=== PATIENT | male | born 1995 | race African-American/Black ===

== ENCOUNTER 2017-08-07 10:59 | Day surgery (SDC) | payer OTHER ==
[~2017-08-07] VITALS: Ht 175.3 cm; Wt 68.0 kg
[2017-08-07] VITALS (13 sets, daily range): BP systolic 107–140; BP diastolic 52–88
--- NOTE | 2017-08-07 07:11 | Operative Note - PDOC ---
Operative Note Operative Note Pre-op Diagnosis: left knee acl tear Procedure: see op report Post-op Diagnosis: same as pre-op plus Operative Findings: consistent w/pre-op dx studies Anesthesia: MAC Specimen: none Complications: none Condition: stable Estimated Blood Loss: none Implant(s) used?: Yes RIC ROBERTS Aug 07, 2017 07:11
--- NOTE | 2017-08-07 07:11 | Pre-Procedure Note/Attestation ---
Pre-Procedure Note/Attestation Complete Prior to Procedure Planned Procedure: left Procedure Narrative: knee arthroscopic acl reconstruction Indications for Procedure Pre-Operative Diagnosis: left knee acl tear Attestation I attest that I discussed the nature of the procedure; its benefits; risks and complications; and alternatives (and the risks and benefits of such alternatives ), prior to the procedure, with the patient (or the patient's legal passenger relations representative). I attest that, if there was a reasonable possibility of needing a blood transfusion, the patient (or the patient's legal passenger relations representative) was given the [facility] standardized written summary, pursuant to the [place] Blood Safety Act ([place] Health and Safety Code # 1645, as amended). I attest that I re-evaluated the patient just prior to the surgery and that there has been no change in the patient's H&P, except as documented below: RIC ROBERTS Aug 07, 2017 07:11
[~2017-08-07 10:59] MED LIST: NKM; ceFAZolin 1gm/50ml Premix 50 ML IV ONE; celeBREX 200mg Cap **SURGERY PATIENTS ONLY ORAL ONE; oxyCONTIN 20mg tab ORAL ONE
[2017-08-07] MEDS ORDERED: Dexamethasone 4mg/ml vial ONE (13:00)
[2017-08-07] MEDS ORDERED: Propofol 200mg/20ml IV ONE (13:00)
[2017-08-07] MEDS ORDERED: Ketamine 500mg Inj ONE (13:00)
[2017-08-07] MEDS ORDERED: fentaNYL 100 mcg/2 mL IV ONE (13:00)
[2017-08-07] MEDS ORDERED: LR 1000ml ONE (13:00)
[2017-08-07] MEDS ORDERED: Lidocaine 1% MPF 10mg/ml 5ml ONE (13:00)
[2017-08-07] MEDS ORDERED: Alfentanil 2ml Inj ONE (13:00)
[2017-08-07] MEDS ORDERED: Ropivacaine 5mg/ml Vial 30ml INJ ONE (13:12)
[2017-08-07] MEDS ORDERED: Morphine Sulfate PF 10 ML ONE (13:16)
[2017-08-07] MEDS ORDERED: Duramorph PF 10mg/10ml amp IV ONE (13:17)
[2017-08-07] MEDS ORDERED: EPINEPHrine 1mg/1ml Amp ONE (13:17)
[2017-08-07] MEDS ORDERED: Kenalog-40 1ml Vial ONE (13:17)
[2017-08-07] MEDS ORDERED: Ketorolac 30mg Inj ONE (13:17)
[2017-08-07] MEDS ORDERED: Bupivacaine 0.25% Inj 30ml INJ ONE (13:17)
[2017-08-07] MEDS ORDERED: Bupivacaine w/Epi 0.75% 30ml Vial INJ ONE (13:17)
[2017-08-07] MEDS ORDERED: Lidocaine 1% 10mg/ml/EPI 0.01mg/ml 50ml INJ ONE (13:18)
[2017-08-07] MEDS ORDERED: NeoSporin Gu Irrig 1ml Amp IRRIG ONE (13:44)
[2017-08-07] MEDS ORDERED: Bacitracin 50000 Units Vial ONE (13:44)
[2017-08-07] MEDS ORDERED: LR 1000ml 1,000 ML IVLG SCH (13:54)
--- NOTE | 2017-08-07 13:54 | Anethesia Preoperative Eval ---
Anesthesia Pre-op PMH/ROS General Date of Evaluation: Aug 07, 2017 Time of Evaluation: 13:18 Anesthesiologist: Johana ASA Score: ASA 1 Mallampati Score Class I : Soft palate, uvula, fauces, pillars visible Class II: Soft palate, uvula, fauces visible Class III: Soft palate, base of uvula visible Class IV: Only hard plate visible Mallampati Classification: Class I Surgeon: Viveros Diagnosis: L Knee Pain Surgical Procedure: L Knee ACL Repair Anesthesia History: none Family History: no anesthesia problems Allergies: Coded Allergies: No Known Allergies (Unverified , 08/05/17) Medications: see eMAR Anesthesia Pre-op Phys. Exam Physician Exam Last Vital Signs Date Time Temp Pulse Resp B/P (MAP) Pulse Ox O2 Delivery O2 Flow Rate FiO2 08/07/17 12:32 98.7 82 20 122/74 97 Room Air Constitutional: NAD Neurologic: CN 2-12 intact Cardiovascular: RRR Respiratory: CTA Gastrointestinal: S/NT/ND Airway Exam Mallampati Score: Class I MO: full ROM: full Teeth: intact Anesthesia Pre-op A/P Risk Assessment & Plan Assessment: ASA 1 Plan: GA, BIS, L Adductor, Femoral Block Status Change Before Surgery: No Pre-Antibiotics Dru Grams Ancef IV Given Within 1 Hr of Incision: Yes Time Given: 13:31 Manuel Vaughn MD Aug 07, 2017 13:54
[2017-08-07] MEDS ORDERED: LORazepam Inj 2mg/ml 1ml IV PRN (14:00)
[2017-08-07] MEDS ORDERED: Norco 5mg/325mg tab ORAL PRN ×2 (14:00→20:01)
[2017-08-07] MEDS ORDERED: Midazolam 2mg/2ml Inj IVP PRN (14:00)
[2017-08-07] MEDS ORDERED: Metoclopramide 10mg/2ml Inj IVP PRN (14:00)
[2017-08-07] MEDS ORDERED: Ketorolac 60mg Inj IV PRN (14:00)
[2017-08-07] MEDS ORDERED: Norco 7.5mg/325mg tab ORAL PRN (14:00)
[2017-08-07] MEDS ORDERED: fentaNYL 100 mcg/2 mL IV PRN (14:00)
[2017-08-07] MEDS ORDERED: oxyCODONE HCL/Acetaminophen 5/325mg ORAL PRN (14:00)
[2017-08-07] MEDS ORDERED: Atropine Inj 1mg/10ml Syr IV PRN ×2 (14:00→18:00)
[2017-08-07] MEDS ORDERED: DiphenhydrAMINE 50mg/ml Inj IVP PRN (14:00)
[2017-08-07] MEDS ORDERED: Ketorolac 30mg Inj IV PRN (14:00)
[2017-08-07] MEDS ORDERED: Hydromorphone 0.5mg/0.5ml inj IVP PRN (14:00)
--- NOTE | 2017-08-07 14:02 | Immediate Post-Op Evaluation ---
Immediate Post-Op Evalulation Immediate Post-Op Evalulation Procedure: L Knee ACL Repair Date of Evaluation: Aug 07, 2017 Time of Evaluation: 15:32 IV Fluids: 800 LR Blood Products: 0 Estimated Blood Loss: 15 Urinary Output: 0 Blood Pressure Systolic: 112 Blood Pressure Diastolic: 56 Pulse Rate: 84 Respiratory Rate: 16 O2 Sat by Pulse Oximetry: 100 Temperature (Fahrenheit): 97.6 Pain Score (1-10): 2 Nausea: No Vomiting: No Complications 0 Patient Status: awake, reacts, patent, none Hydration Status: adequate Dru Grams Ancef IV Given Within 1 Hr of Incision: Yes Time Given: 13:31 Manuel Vaughn MD Aug 07, 2017 14:02
--- NOTE | 2017-08-07 14:02 | 48 Hour Post Anesthesia Eval ---
Post Anesthesia Evaluation Procedure: L Knee ACL Repair Date of Evaluation: Aug 07, 2017 Time of Evaluation: 17:43 Blood Pressure Systolic: 114 0: 62 Pulse Rate: 72 Respiratory Rate: 18 Temperature (Fahrenheit): 98.4 O2 Sat by Pulse Oximetry: 100 Airway: patent Nausea: No Vomiting: No Pain Intensity: 3 Hydration Status: adequate Cardiopulmonary Status: Stable Mental Status/LOC: patient returned to baseline Follow-up Care/Observations: 0 Post-Anesthesia Complications: 0 Follow-up care needed: ready to discharge Manuel Vaughn MD Aug 07, 2017 14:02
[2017-08-07] MEDS ORDERED: Acetaminophen (Non formulary) 100 ML IV ONE (15:00)
[2017-08-07] MEDS ORDERED: HYDROmorphone 1mg/ml Carpuject SUBQ PRN (20:01)
[2017-08-07] MEDS ORDERED: D5 1/2NS 1,000 ML IV SCH (20:01)
[2017-08-07] MEDS ORDERED: Tylenol #3 tab (300mg/30mg) ORAL PRN (20:01)
--- NOTE | 2017-08-08 01:15 | Operative Note - Dictated ---
DATE OF OPERATION: 08/07/2017 PREOPERATIVE DIAGNOSIS: Left anterior cruciate ligament tear. POSTOPERATIVE DIAGNOSES: 1. Left knee anterior cruciate ligament tear. 2. Left knee lateral meniscus tear. PROCEDURES: 1. Left knee arthroscopic ACL reconstruction with tibialis anterior allograft. 2. Partial lateral meniscectomy. SURGEON: Kyrie Viveros M.D. ANESTHESIA: Femoral adductor block with general. INDICATION FOR THE PROCEDURE: The patient is a pleasant 21-year-old gentleman, who sustained an injury to his left knee and diagnosed with ACL tear along with acute meniscus tear. It is indicative of operative fixation. Risks, limitations, expectations, and complications of the procedure were discussed in detail. All questions were addressed. DESCRIPTION OF PROCEDURE: An informed consent was obtained. The patient was brought to the operating room and placed the patient under femoral adductor general anesthesia. The patient then carefully had a tourniquet applied to the left proximal thigh. The left leg was prepped and draped in a sterile manner. Ancef was administered. Time-out was performed. The tibialis anterior allograft was fashioned on the back table. It measured 9.5 mm. The portal sites were marked and injected with 1% lidocaine with epinephrine. Inferolateral stab incision was then made. Trocar was introduced in the knee joint. A systematic tour of the knee was performed. There was no significant chondral damage of the patellofemoral compartment. There was mild chondral damage of medial condyle consistent with grade 1 injury. The medial meniscus was intact. The ACL was completely torn. The lateral compartment was entered. There was a complex horizontal tear of the lateral meniscus. A partial lateral meniscectomy was performed using a combination of opal and biters. Once this was done, the femoral tunnel guide was then placed and the femoral tunnel was then made. Accordingly, a tibial tunnel guide was then used and the tibial tunnel was then prepared. Once that was completed, tibialis anterior allograft was then passed through the tibial tunnel, through the intercondylar notch into the femoral tunnel. The tibial section was secured with a 10 x 30 interference screw. Once that was done, instruments were removed. Portal sites were closed with 3-0 Monocryl suture. Steri-Strips and a dry sterile dressing were applied. The patient was awoken and taken to the recovery room with stable vital signs. ESTIMATED BLOOD LOSS: Minimal. COMPLICATIONS: None. SPECIMENS: None. IMPLANTS: Include tibialis anterior allograft, a Biomet ToggleLoc suture relay, and a Biomet 10 x 30 interference screw. Kyrie Viveros M.D. DR: TOBI JOB#: [id number] CC:
== END 2017-08-07 13:05 | disposition home or self-care (01) ==
LOC: SUR 10:59
DX: S83.512A Sprain of anterior cruciate ligament of left knee, initial encounter (principal); S83.282A Other tear of lateral meniscus, current injury, left knee, initial encounter; X58.XXXA Exposure to other specified factors, initial encounter; Y93.9 Activity, unspecified; Y92.9 Unspecified place or not applicable
CPT/HCPCS: 29881; 29888; C1713; J0171; J0690; J1100; J1885; J2250; J2274; J2405; J2704; J2795; J3010; J3301; J3490; J7120; 94003; 94150

== ENCOUNTER 2018-11-05 07:00 | Inpatient (IN) | payer OTHER ==
[~2018-11-05] VITALS: Ht 175.3 cm; Wt 72.6 kg
[~2018-11-05 07:00] MED LIST changes: -ceFAZolin 1gm/50ml Premix 50 ML IV ONE; +ceFAZolin sod 2 GM in D5W 110 ML IVPB ONE; -celeBREX 200mg Cap **SURGERY PATIENTS ONLY ORAL ONE; -oxyCONTIN 20mg tab ORAL ONE
[2018-12-17] VITALS (13 sets, daily range): BP systolic 123–151; BP diastolic 69–93
[2018-12-17] MEDS: Dexamethasone 4mg/ml vial IVP SCH ×4 (06:00→19:18)
[2018-12-17] MEDS ORDERED: ceFAZolin sod 2 GM in D5W 110 ML IVPB ONE (07:00)
--- NOTE | 2018-12-17 10:44 | Pre-Procedure Note/Attestation ---
Pre-Procedure Note/Attestation Complete Prior to Procedure Planned Procedure: not applicable Procedure Narrative: Cervical 56 artificial disc replacement and Cervical 67 anterior cervical discectomy and fusion Indications for Procedure Pre-Operative Diagnosis: Cervical 56,67 herniation Attestation I attest that I discussed the nature of the procedure; its benefits; risks and complications; and alternatives (and the risks and benefits of such alternatives ), prior to the procedure, with the patient (or the patient's legal outbound sales representative). I attest that, if there was a reasonable possibility of needing a blood transfusion, the patient (or the patient's legal outbound sales representative) was given the [facility] standardized written summary, pursuant to the [place] Blood Safety Act ([place] Health and Safety Code # 1645, as amended). I attest that I re-evaluated the patient just prior to the surgery and that there has been no change in the patient's H&P, except as documented below: José Miguel Aranda MD Dec 17, 2018 10:44
[2018-12-17] MEDS ORDERED: Metoclopramide 10mg/2ml Inj IVP PRN ×2 (10:45→15:15)
[2018-12-17] MEDS ORDERED: Naloxone 0.4mg/ml Inj IVP PRN (10:45)
[2018-12-17] MEDS ORDERED: Morphine Sulfate 4mg/ml Inj (IV USE ONLY) IV PRN ×2 (10:45)
[2018-12-17] MEDS ORDERED: Milk of Magnesia 30ml Ud ORAL PRN (10:45)
[2018-12-17] MEDS ORDERED: HYDROcodone/Acetamin 5/325 tab ORAL PRN (10:45)
[2018-12-17] MEDS ORDERED: Morphine Sulfate 2mg/ml Inj(IV/IM USE ONLY) IV PRN (10:45)
[2018-12-17] MEDS ORDERED: HYDROcodone/Acetamin 7.5/325 tab ORAL PRN ×2 (10:45)
[2018-12-17] MEDS ORDERED: HYDROmorphone 1mg/ml Carpuject IVP PRN (10:45)
--- NOTE | 2018-12-17 10:45 | Brief Operative Note ---
Immediate Post Operative Note Operative Note Chief Complaint: neck pain and radiculopathy Pre-op Diagnosis: Cervical 56,67 herniation Procedure: Cervical 56 artificial disc replacement and Cervical 67 anterior cervical discectomy and fusion Post-op Diagnosis: same as pre-op Findings: consistent w/pre-op dx studies Surgeon: Manoj Manager Rn: Taye Anesthesia: general Specimen: none Complications: none Condition: stable Fluids: ivf Estimated Blood Loss: minimal Drains: none Implant(s) used?: Yes - prodisc c sz 5, nuvasive interlock c sz 6 José Miguel Aranda MD Dec 17, 2018 10:45
[2018-12-17] MEDS ORDERED: fentaNYL 100 mcg/2 mL IV ONE ×2 (12:27→14:28)
[2018-12-17] MEDS ORDERED: Midazolam 2mg/2ml Inj ONE ×2 (12:27→13:37)
[2018-12-17] MEDS ORDERED: Lidocaine 1% MPF 10mg/ml 5ml ONE (12:27)
[2018-12-17] MEDS ORDERED: Zemuron 50mg/5ml Inj IV ONE ×2 (13:05→15:33)
[2018-12-17] MEDS ORDERED: Vancomycin 1gm vial IVPB ONE (13:14)
[2018-12-17] MEDS ORDERED: Gelfoam Size TOPIC ONE (13:14)
[2018-12-17] MEDS ORDERED: Thrombin 5000 units TOPIC ONE (13:14)
[2018-12-17] MEDS ORDERED: Bacitracin 50000 Units Vial ONE (13:14)
--- NOTE | 2018-12-17 13:25 | Anethesia Preoperative Eval ---
Anesthesia Pre-op PMH/ROS General Date of Evaluation: Dec 17, 2018 Time of Evaluation: 13:17 Anesthesiologist: Brigida Payne CRNA ASA Score: ASA 1 Mallampati Score Class I : Soft palate, uvula, fauces, pillars visible Class II: Soft palate, uvula, fauces visible Class III: Soft palate, base of uvula visible Class IV: Only hard plate visible Mallampati Classification: Class II Surgeon: Manoj Diagnosis: herniated nucleus pulposis, pain, radiculopathy Surgical Procedure: anterior cervical discectomy, fusion C6-7. artificial disc replacement C5-6 Anesthesia History: none Social History: smoking - daily MJ Family History: no anesthesia problems Allergies: Coded Allergies: No Known Allergies (Unverified , 08/05/17) Patient NPO?: Yes NPO Date: Dec 16, 2018 NPO Time: 2129 Past Medical History Cardiovascular: Denies: HTN, CAD, [place], valve dz, arrhythmia, other Pulmonary: Denies: asthma, COPD, HILARY, other Gastrointestinal/Genitourinary: Denies: GERD, CRI, ESRD, other Neurologic/Psychiatric: Denies: dementia, CVA, depression/anxiety, TIA, other Endocrine: Denies: DM, hypothyroidism, steroids, other HEENT: Denies: cataract (L), cataract (R), glaucoma, [place] (L), [place] (R), other Hematology/Immune: Denies: anemia, DVT, bleeding disorder, other Musculoskeletal/Integumentary: Reports: other - RIGHT knee injury s/p arthoscopic repair PMH Narrative: as above PSxH Narrative: RIGHT knee surgery Anesthesia Pre-op Phys. Exam Physician Exam Last Vital Signs Date Time Temp Pulse Resp B/P (MAP) Pulse Ox O2 Delivery O2 Flow Rate FiO2 12/17/18 11:49 Room Air 12/17/18 11:39 98.2 67 18 125/69 (87) 100 Constitutional: NAD Neurologic: CN 2-12 intact Cardiovascular: RRR Respiratory: CTA Gastrointestinal: S/NT/ND Airway Exam Mallampati Score: Class II MO: full Neck: (+) pain, N/T with neck movement TMD: > 3 FB ROM: full Teeth: intact Dentures: no upper, no lower Anesthesia Pre-op A/P Labs reviewed, see chart Studies Pre-op Studies: EKG - Sinus rhythm, echo - NL LVEF Risk Assessment & Plan Assessment: ASA 1, ok to proceed Plan: GETA Status Change Before Surgery: No Pre-Antibiotics Drug: Brigida Smith CRNA Dec 17, 2018 13:25
[2018-12-17] MEDS ORDERED: NS Irrig 1000ml ONE (13:30)
[2018-12-17] MEDS ORDERED: LR 1000ml ONE (13:30)
[2018-12-17] MEDS ORDERED: Sterile Water Irrig 1000ml IRRIG ONE (13:30)
[2018-12-17] MEDS ORDERED: Propofol 1,000mg/ 100ml btl IV ONE (13:30)
[2018-12-17] MEDS ORDERED: Morphine Sulfate 10mg/ml Inj ONE (14:09)
[2018-12-17] MEDS ORDERED: DiphenhydrAMINE 50mg/ml Inj IVP PRN (15:15)
[2018-12-17] MEDS ORDERED: Hydromorphone 0.5mg/0.5ml inj IVP PRN (15:15)
[2018-12-17] MEDS ORDERED: Acetaminophen (Non formulary) 100 ML IV ONE (15:15)
[2018-12-17] MEDS ORDERED: Lidocaine 1% Plain 30 ml INJ ONE (15:50)
[2018-12-17] MEDS ORDERED: Glycopyrrolate 0.2mg/ml 1ml Vial ONE (15:51)
[2018-12-17] MEDS ORDERED: Neostigmine 1mg/ml 10ml Inj ONE (15:51)
--- NOTE | 2018-12-17 16:51 | Immediate Post-Op Evaluation ---
Immediate Post-Op Evalulation Immediate Post-Op Evalulation Procedure: Anterior cervical discectomy and fusion C6-7, disc replacement C5-6 Date of Evaluation: Dec 17, 2018 Time of Evaluation: 16:41 IV Fluids: LR 1600 ml Estimated Blood Loss: 50 ml Blood Pressure Systolic: 136 Blood Pressure Diastolic: 80 Pulse Rate: 79 Respiratory Rate: 16 O2 Sat by Pulse Oximetry: 100 Temperature (Fahrenheit): 98.0 Pain Score (1-10): 4 Nausea: No Vomiting: No Complications none Patient Status: awake, reacts, patent, extubated Drug: cefazolin 2000 mg IV Given Within 1 Hr of Incision: Yes Time Given: 13:55 Brigida Payne CRNA Dec 17, 2018 16:51
--- NOTE | 2018-12-17 16:54 | Diagnostic Imaging Report ---
INDICATION: Pain, intraoperative TECHNIQUE: Intraoperative imaging Fluoroscopy time: 48.7 seconds Total dose: 0.09974 mGym2 Total number of images: 4 COMPARISON: None FINDINGS: Intraoperative images demonstrate surgical tool projected anterior to the C6-7 disc. Subsequent images demonstrate placement of a disc prosthesis at C5-6, and anterior fusion hardware at C6-7 IMPRESSION: Intraoperative imaging, as described
--- NOTE | 2018-12-17 17:40 | 48 Hour Post Anesthesia Eval ---
Post Anesthesia Evaluation Procedure: Anterior cervical discectomy and fusion C6-7, disc replacement C5-6 Date of Evaluation: Dec 17, 2018 Time of Evaluation: 18:52 Blood Pressure Systolic: 134 0: 78 Pulse Rate: 73 Respiratory Rate: 16 Temperature (Fahrenheit): 98.2 O2 Sat by Pulse Oximetry: 100 Airway: patent Nausea: No Vomiting: No Pain Intensity: 3 Hydration Status: adequate Cardiopulmonary Status: Stable Mental Status/LOC: patient returned to baseline Follow-up Care/Observations: 0 Post-Anesthesia Complications: 0 Follow-up care needed: N/A Manuel Vaughn MD Dec 17, 2018 17:40
[2018-12-17] MEDS ORDERED: Docusate 100mg cap ORAL SCH (18:00)
--- NOTE | 2018-12-17 18:05 | NUR ---
NURSE NOTES: Received report from Aura BLISTER PACKING MACHINE TENDER. Patient a/o x4 lying on the bed. No respiratory distress noted. Denies any pain at this time. Patient on O2 3L. IV patent. Right cervical surgical site dressing dry and intact. Bed in lowest position, call light within reach. Will continue to monitor.
[2018-12-17] MEDS ORDERED: Chloraseptic Spray 20mL Bottle ORAL PRN (19:00)
[2018-12-17] MEDS: Docusate Sod/Senna tab ORAL SCH (19:16)
[2018-12-17] MEDS: NS w/KCl 20mEq 1,000 ML IV SCH (20:04)
--- NOTE | 2018-12-17 20:13 | NUR ---
HAND-OFF: Report given to JUSTO Tavares.
--- NOTE | 2018-12-17 20:30 | NUR ---
NURSE NOTES: Pt is in bed, awake and alert. No acute distress noted. Cervical dressings dry and intact. Ns with 20mEq KCl running at 100ml/hr. Pt voids in the urinal. Bed low in position,side rails up and call light within reach. Pt will be monitored.
[2018-12-17] MEDS: ceFAZolin sod 1 GM in D5W 55 ML IV SCH (21:42)
--- NOTE | 2018-12-17 23:31 | Operative Note - Dictated ---
DATE OF OPERATION: 12/17/2018 SURGEON: José Miguel Aranda MD, Orthopedic Spine Surgeon. ATM MECHANIC: EMILE Deluca. PREOPERATIVE DIAGNOSES: 1. Intractable neck pain. 2. Radiculopathy. 3. Herniation, C5-C6, C6-C7. 4. Neural foraminal stenosis, C5-C6, C6-C7. 5. Stenosis. POSTOPERATIVE DIAGNOSES: 1. Intractable neck pain. 2. Radiculopathy. 3. Herniation, C5-C6, C6-C7. 4. Neural foraminal stenosis, C5-C6, C6-C7. 5. Stenosis. PROCEDURE PERFORMED: 1. Anterior cervical discectomy and artificial disc replacement of C5-C6 using a Synthes ProDisc C size 5 height 2. Anterior cervical discectomy and fusion of C6-C7 using NuVasive Interlock C size 6 PEEK cage and three screws of 13 mm length with 1 mL of Osteocel allograft bone and local autograft. 3. Use of intraoperative microscope. 4. Motor-evoked potential monitoring. 5. Somatosensory-evoked potential monitoring. 6. Supervision and interpretation of fluoroscopy. COMPLICATIONS: None. ANESTHESIA: General. ESTIMATED BLOOD LOSS: Less than 100 mL. INDICATIONS FOR SURGERY: This patient is a 23-year-old male who has history of diagnoses as listed above. As of result of this, the patient sustained intractable neck pain, radiculopathy, herniation at C5-C6 and C6-C7, neural foraminal stenosis at C5-C6 and C6-C7, and stenosis. We tried a course of conservative management, but despite this course, there was still a significant component of persistent, recalcitrant neck pain and arm pain. The MRI demonstrated significant neural foraminal compromise secondary to disc herniations at C5-C6 and C6-C7. We had a long discussion with Mirtaamador regarding the risks and benefits of surgery. Our discussion included but was not limited to nonoperative management, chiropractic management, another epidural steroid injection as well as definitive management in the form of surgery. We recommended an artificial disc replacement of C5-C6 and anterior cervical discectomy and fusion of C6-C7 as final definitive management. We reviewed the risks and benefits of surgery with the patient. Our discussion included a comprehensive review of the clinical issues and the nature of the clinical decision. We reviewed the alternatives, including doing nothing. The patient elected to proceed accordingly with an artificial disc replacement of C5-C6 and anterior cervical discectomy and fusion of C6-C7. We had a long discussion regarding the risks, alternatives, and benefits of surgery. Our description of the risks included a discussion in person as well as a signed consent which detailed all pertinent risks from the procedure itself. Briefly, our discussion included but was not limited to infection, bleeding, pseudarthrosis, spinal cord injury, neurovascular injury, dural tear, CSF leak, neuropathy, paralysis, permanent weakness/drop foot/drop arm, paresthesias, blindness, palsy, and weakness. The patient understood there may be a need for a revision surgery or additional procedures. Approach-related complications including dysphonia, dysphagia, blindness, permanent vocal cord and neural injury, hematoma, swallowing and breathing difficulty. Medical complications were reviewed including liver, kidney, shock, cardiopulmonary failure, anesthesia complications including , swelling, damage to the musculature, larynx/voice injury or loss, esophagus/throat, trachea, blood vessels and muscles/muscular sprain, and lungs/pneumothorax during this surgical procedure; injury to deeper structures may be temporary or permanent. After this review of risks, the patient understood these and elected to proceed. A written and verbal consent was given. We discussed the pros and cons of all the alternatives. We discussed the uncertainties associated with the decision. Afterwards I assessed the patient's understanding and explored their preferences. All questions were answered and no guarantees were given. Medical clearance was obtained prior to surgery. INTRAOPERATIVE FINDINGS: A tear was found on the superolateral aspect of the posterior longitudinal ligament at C5-C6 and C6-C7. The tear was larger at C6-C7, and at this point, a large amount of nucleus pulposus was found herniated through encroaching on the neural foramina. At C5-C6, there was also a tear noted, not as large, but also through this tear were some nuclear fragments exiting which were impinging on the neural foramina therein. DESCRIPTION OF PROCEDURE: Under the benefit of general endotracheal anesthesia and with the assistance of the entire operative team, the patient was moved from the rney onto the operative table in the supine position. The head was secured and carefully positioned appropriately. Bilateral arms were secured with Gel Pads and foam and all bony prominences were padded. For the bilateral lower extremities, SCD and PARVEZ hose were placed for DVT prophylaxis. A surgical timeout was called which corroborated our planned procedure of an artificial disc replacement of C5-C6 and anterior cervical discectomy and fusion of C6-C7. Preoperative antibiotics were administered within 30 minutes of the incision for antibiotic prophylaxis. Using lateral fluoroscopic radiography, the operative levels were delineated. Next the wound was prepped and draped with chlorhexidine and sterile drapes. An incision was based on lateral fluoroscopy and we centered our incision at the C5-C6 and C6-C7 interspace and next using a standard Ward-Lopez anterior-based approach, the incision was taken down through the skin and subcutaneous tissues until the vertebral bodies and their corresponding disc spaces were visualized. A needle was placed into the interspace to confirm placement of the operative interspace and we performed the remainder of procedure under microscopic visualization. Next, using a bipolar and Bovie cautery to ensure meticulous hemostasis, the longus colli was mobilized bilaterally and retractors were placed deep to the longus colli bilaterally to address retraction. Next we turned our attention to the radical anterior discectomy. This was initially performed at C5-C6 first by using a 15 blade scalpel followed by narrow pituitaries and a Microsect 5-B curette was used to denude the endplate of all cartilaginous tissue. Next using a [employer] AM8 drill bit, the vertebral endplates were denuded of all residual cartilage in a hqlo-qk-pbrs and wpnnp-qt-gvmno fashion, and ultimately the posterior uncinate joints bilaterally and posterior osteophytic lips and margins were carefully denuded until clear visualization of the posterior longitudinal ligament was possible. An endplate preparation was performed in the exact same fashion using an intervertebral documentation clerk, sequential distraction was obtained throughout the disc space. We saw a tear/rent in the PLL and this was carefully mobilized and dissected using a Microsect 1-B curette until we visualized a discrete disc herniation with compression of the spinal cord as well as neural foramina which was right-sided more than left-sided. This neural foraminal compression was carefully resected using Kerrison-1 and Kerrison-2 rongeurs until complete decompression of the spinal cord was visualized and complete decompression of the neural foramina and nerve root therein as well as the axilla and lateral margin of the nerve root was visualized and subsequently completely decompressed. The family was notified at one-hour intervals throughout the procedure to provide for consistent updates. We next turned our attention towards trialing our implant within the disc space. We initially tried size 5 and this ProDisc Cervical spacer fit well in regard to depth and width. This implant was opened and prepared. Next under direct visualization, I confirmed excellent fit in respect to the anterior and posterior vertebral bodies, the uncinate joints and in regard to toggle. Once satisfied with this placement on serial AP and lateral fluoroscopy, I turned my attention towards cutting our meka. These were cut in the bones using a reciprocating drill and afterwards all free fragments of bone were irrigated. Next FloSeal was placed into the interspace, then removed in its entirety and the implant was inserted using fluoroscopic guidance. Next the Synthes ProDisc C size 5 ADR was then carefully advanced and secured into the intervertebral space under direct visualization and with supervision of AP and lateral fluoroscopic views. I next turned my attention towards the radical anterior discectomy. This was then performed at C6-C7 first by using a 15 blade scalpel followed by narrow pituitaries and a Microsect 5-B curette was used to denude the endplate of all cartilaginous tissue. Next using a [employer] AM8 drill bit, the vertebral endplates were denuded of all cartilaginous tissue in a vnoz-bt-moko and cnioo-cs-czfuc fashion, and ultimately the posterior uncinate joints bilaterally and posterior osteophytic lips and margins were carefully denuded until wide and thorough visualization of the posterior longitudinal ligament was possible. At this level, the endplate preparation was performed in the exact same fashion using an intervertebral documentation clerk, sequential distraction was obtained throughout the disc space. We saw a tear/rent in the PLL and this was carefully mobilized and dissected using a Microsect 1-B curette until we visualized an obvious disc herniation with compression of the spinal cord as well as neural foramina which was right-sided more than left-sided. This neural foraminal compression was carefully resected using a Kerrison-1 and Kerrison-2 rongeurs until complete decompression of the spinal cord was visualized and complete decompression of the neural foramina and nerve root therein as well as the axilla and lateral margin of the nerve root was visualized and subsequently completely decompressed. We next turned our attention towards trialing our implant within the disc space. We initially tried size 5 and afterwards size 6 trial from the [employer] Interlock system at each level, which appeared to be appropriate under AP and lateral fluoroscopy as well as in terms of its height, depth, width, and lack of toggle. The PEEK (polyetheretherketone) interbody cages were then both packed with allograft bone from Osteocel and local autograft bone matrix. Next these were then carefully advanced and secured into their intervertebral spaces under direct visualization and with supervision of AP and lateral fluoroscopic views. We next turned our attention towards plating. Plating was performed at each level with the [employer] Interlock-C plating system. A total of three screws, size 13 mm in length were inserted and confirmed under AP and lateral fluoroscopy and confirmed to be in excellent position. After a finger sweep, we confirmed removal of all sponges. The retractor was removed and we next turned our attention to meticulous hemostasis with FloSeal and bipolar cautery. After the sponge and needle count was again found to be correct with our second count, we next turned our attention to closure. The wound was again copiously irrigated with antibiotic-impregnated saline Closure consisted of 4-0 clear nylon for the platysma, and 5-0 clear nylon for the superficial skin. Final skin closure and dressings consisted of Dermabond. Prior to final closure, a final radiograph was obtained which demonstrated the hardware was intact with excellent position throughout. The patient tolerated the procedure well. The patient was carefully extubated after the conclusion of surgery. We discussed the findings of the surgery with the family upon completion of the case. At this point, the patient was transferred to the spine floor for further observation. José Miguel Aranda M.D. DR: Dixon JOB#: [id number] CC: KODAK
[2018-12-18] VITALS: BP 128/78
[2018-12-18 04:00] VITALS: BP 127/67
[2018-12-18] MEDS: ceFAZolin sod 1 GM in D5W 55 ML IV SCH (05:11)
[2018-12-18] MEDS: NS w/KCl 20mEq 1,000 ML IV SCH (05:11)
--- NOTE | 2018-12-18 05:57 | NUR ---
NURSE NOTES: No distress noted overnight. Dressing dry and intact.
--- NOTE | 2018-12-18 07:05 | NUR ---
HAND-OFF: Report given to Lina Nayak RN.
--- NOTE | 2018-12-18 07:22 | NUR ---
NURSE NOTES: Received report from JUSTO Tavares. Rounding done with outgoing nurse. Patient a/o x4 lying on the bed. No respiratory distress noted. Denies pain at this time. Cervical surgical site dry and intact. Voided after surgery per night nurse. IV patent. Bed in lowest position, call light within reach. Will continue to monitor.
[2018-12-18 08:00] VITALS: BP 106/72
[2018-12-18] MEDS: Docusate Sod/Senna tab ORAL SCH (09:09)
[2018-12-18] MEDS ORDERED: NORCO 10-325 T1 EACH ORAL (11:40)
--- NOTE | 2018-12-18 12:30 | NUR ---
NURSE NOTES: Discharge instruction was given. Belongings checked with the patient. Removed IV line. Patient discharged accompanied by his friend.
--- NOTE | 2018-12-20 15:14 | Discharge Summary ---
Discharge Summary Hospital Course Date of Admission Dec 17, 2018 at 10:18 Date of Discharge Dec 18, 2018 at 12:29 Admitting Diagnosis Herniated nucleus pulposus, radiculopathy, neck pain Reason for Hospitalization: elective surgery HPI Kathy Watters is a 23 year old male who was admitted on Dec 17, 2018 at 10: 18 for Herniated Nucleus Pulposus,Pain, Radiculopathy. Patient was admitted for elective surgery. Procedures s/p 12/17/[address] Aranda 1. Anterior cervical discectomy and artificial disc replacement of C5-C6 using a Synthes ProDisc C size 5 height 2. Anterior cervical discectomy and fusion of C6-C7 using NuVasive Interlock C size 6 PEEK cage and three screws of 13 mm length with 1 mL of Osteocel allograft bone and local autograft. 3. Use of intraoperative microscope. 4. Motor-evoked potential monitoring. 5. Somatosensory-evoked potential monitoring. 6. Supervision and interpretation of fluoroscopy. Hospital Course status post surgery course of recovery uneventful initially IV fluids s/p perioperative antibiotics neurovascular status closely monitored, stable incision clean, dry ,and intact pain management addressed , pain controlled hemodynamically stable ambulated freely fall precautions maintained; safe for ambulation slowly started on diet as tolerated Chloraseptic lozenges/spray provided as needed Rating diet, IV fluids discontinued antiemetics were on board as needed voided freely bowel regimen instituted patient was stable for discharge discharge instructions provided follow up with surgeon as outpatient as advised by surgeon FINAL DIAGNOSES 1. Intractable neck pain. 2. Cervical radiculopathy 3. Herniated nucleus pulposus, C5-C6, C6-C7. 4. Neural foraminal stenosis, C5-C6, C6-C7. 5. Cervical stenosis. 6. s/p cervical C5-6 artificial disc replacement and cervical C6-7 anterior cervical discectomy and fusion Discharge Medications Changed Medications: Hydrocodone Bit/Acetaminophen 10-325* ([place] 10-325*) 1 Each Tablet 1 TAB ORAL Q8H PRN for For Pain, #90 TAB 0 Refills (Changed from: Q6H; 10) PRN PAIN Discharge Condition Upon Discharge: stable Discharge Disposition Patient was discharged to Home (01) Discharge Instructions Discharge Instructions Special Instructions I have been assigned to complete a D/C Summary on this account. I was not involved in the patient management Irma Mead CLINICAL ASST Dec 20, 2018 15:14
== END 2018-12-18 12:29 | disposition home or self-care (01) | DRG 473 ==
LOC: SDSOVERFLO 12-17 10:18 → 3E 12-17 18:00
PROC: 0RG10A0 Fusion of Cervical Vertebral Joint with Interbody Fusion Device, Anterior Approach, Anterior Column, Open Approach (ICD-10-PCS; principal; 2018-12-17 12:00)
PROC: 0RR30JZ Replacement of Cervical Vertebral Disc with Synthetic Substitute, Open Approach (ICD-10-PCS; principal; 2018-12-17 12:00)
PROC: 4A11X4G Monitoring of Peripheral Nervous Electrical Activity, Intraoperative, External Approach (ICD-10-PCS; principal; 2018-12-17 12:00)
PROC: 0RT30ZZ Resection of Cervical Vertebral Disc, Open Approach (ICD-10-PCS; principal; 2018-12-17 12:00)
DX: M50.122 Cervical disc disorder at C5-C6 level with radiculopathy (principal); M48.02 Spinal stenosis, cervical region; I49.8 Other specified cardiac arrhythmias
CPT/HCPCS: 36415; 72040; 76000; 86850; 86900; 86901; 87081; 94003; 94150; C9399; J2250; J2405; J2710